=== PATIENT | male | born 1980 | race Caucasian/White ===

== ENCOUNTER 2020-06-01 13:55 | Emergency (ER) | payer MEDICAID ==
[~2020-06-01] VITALS: Ht 170.2 cm; Wt 63.0 kg
[2020-06-01 14:32] VITALS: BP 113/90
[2020-06-01] MEDS ORDERED: rabies vaccine (PCEC)/PF 2.5 unit kit IMVAC ONE (16:05)
[2020-06-01] MEDS ORDERED: rabies immune globulin/PF 150 unit/ml inj IMVAC ONE (16:05)
== END 2020-06-01 17:18 | disposition home or self-care (01) ==
LOC: ER 13:55
DX: S61.031A Puncture wound without foreign body of right thumb without damage to nail, initial encounter (principal); Z20.3 Contact with and (suspected) exposure to rabies; W54.0XXA Bitten by dog, initial encounter; Y93.89 Activity, other specified; Y92.89 Other specified places as the place of occurrence of the external cause; Y99.8 Other external cause status
CPT/HCPCS: 90375; 90471; 90675; 96372; 99284

== ENCOUNTER 2020-06-04 12:34 | Emergency (ER) | payer MEDICAID ==
[~2020-06-04] VITALS: Ht 170.2 cm; Wt 63.6 kg
[2020-06-04 12:54] VITALS: BP 102/61
[2020-06-04] MEDS ORDERED: rabies vaccine (PCEC)/PF 2.5 unit kit IMVAC ONE (14:00)
== END 2020-06-04 15:10 | disposition home or self-care (01) ==
LOC: ER 12:35
DX: Z23 Encounter for immunization (principal); Z20.3 Contact with and (suspected) exposure to rabies; Z88.0 Allergy status to penicillin
CPT/HCPCS: 90471; 90675; 99281

== ENCOUNTER 2022-02-23 16:31 | Emergency (ER) | payer MEDICAID ==
[~2022-02-23] VITALS: Ht 171.4 cm; Wt 69.0 kg
[2022-02-23 16:47] VITALS: BP 117/74
== END 2022-02-23 17:47 | disposition home or self-care (01) ==
LOC: ER 16:31
DX: H72.92 Unspecified perforation of tympanic membrane, left ear (principal); H60.92 Unspecified otitis externa, left ear; Z88.0 Allergy status to penicillin
CPT/HCPCS: 99281